=== PATIENT | female | born 1955 | race Caucasian/White ===

== ENCOUNTER 2018-03-19 05:22 | Day surgery (SDC) | payer BC, OTHER ==
[~2018-03-19] VITALS: Ht 165.1 cm; Wt 74.6 kg
[~2018-03-19 05:22] MED LIST: ACID CONTROL150 MG PO; BUPROPION HCL150 M2 PO; CYCLOBENZAPRINE10 MG PO; ELAVIL25 MG PO; HYDROCODON-ACE1 EAC7 PO; MOBIC7.5 MG PO; OMEPRAZOLE40 M1 PO; PAROXETINE HCL10 MG PO; SIMVASTATIN20 MG PO; TYLENOL WITH C1 EACH PO
[2018-03-19 05:40] VITALS: BP 116/70
[2018-03-19 12:20] VITALS: BP 123/70
[2018-03-19 13:20] VITALS: BP 131/72
[2018-03-19 13:50] VITALS: BP 134/65
== END 2018-03-19 14:00 | disposition home or self-care (01) ==
LOC: SDC 05:22
PROC: 0SRC069 Replacement of Right Knee Joint with Oxidized Zirconium on Polyethylene Synthetic Substitute, Cemented, Open Approach (ICD-10-PCS; principal; 2018-03-19)
DX: M17.11 Unilateral primary osteoarthritis, right knee (principal); E78.5 Hyperlipidemia, unspecified; F41.9 Anxiety disorder, unspecified; Z96.652 Presence of left artificial knee joint
CPT/HCPCS: C1713; J0690; J1100; J1170; J1885; J2250; J2405; J2795; J3010; J3475; J7050; S0020